=== PATIENT | male | born 1965 | race Caucasian/White ===

== ENCOUNTER 2016-04-17 05:02 | Day surgery (SDC) | payer OTHER ==
[2016-04-14 16:40] LABS: HEMATOCRIT 47.2 % (40.0-51.0); HEMOGLOBIN 16.6 g/dL (13.6-17.8)
[2016-04-14 16:43] LABS: ASCORBIC ACID (UR NOT ORDER) NEG (NEG); BILIRUBIN, URINE NEGATIVE (NEG); KETONE, URINE NEGATIVE (NEG); LEUKOCYTE ESTERASE(NOT OR TRACE (NEG); WBC (NOT ORDERED) (RFLEX) 2 (0-5)
--- NOTE | ~2016-04-17 | OP ---
Record Of Operation [facility] [address] [place]. [address] NAME: MELANIE CHARLES : 69 STATUS : [facility]#: [id number] AGE: 51 ADM/REG DATE : 04/17/16 MR#: [id number] REPORT SERV DATE: 04/18/16 DICTATED BY: JOB WHITLEY DATE: 04/18/16 REPORT STATUS : Draft TRANSCRIBED BY: PRIETO DATE: 04/18/16 DATE OF PROCEDURE: 04/17/2016 SURGEON: Job Whitley MD TITLE OF OPERATION: left extracorporeal shockwave lithotripsy. PREOPERATIVE DIAGNOSIS: Left renal stone. POSTOPERATIVE DIAGNOSIS: Left renal stone. INDICATIONS: Mr. Charles is a 51-year-old male with a 1.2 cm left renal stone. He was counseled regarding his options, including observation, ureteroscopy, ESWL, and PCNL. He has elected for left ESWL. ANESTHESIA: General. COMPLICATIONS: None. IMPLANTS: None. SPECIMENS: None. NARRATIVE: The patient was brought to the operating room, identified by his wristband. Levaquin had been given for preoperative antibiotics. Conscious sedation was performed. The stone was localized using the fluoroscopy machine in the AP and oblique planes. The ESWL acting working unit was then placed beneath the patient. We began to shock the stone under fluoroscopic guidance slowly increasing the rate. A total of 3000 shocks was given to the stone. There was good radiographic response of the stone. Total fluoro time was less than 2 minutes. The patient was awoken from anesthesia and transferred to the recovery room in stable condition. I will see him back in two weeks with a KUB. LAMONT/PRIETO Job Whitley MD / [id number] CC: MD Chip Smith Jr., M.D.
[~2016-04-17 05:02] MED LIST: ILA60 PO; IMITREX PO; PERCOCET 7.5/321 TAB PO
== END 2016-04-17 17:51 | disposition home or self-care (01) ==
LOC: SDC 05:02
PROVIDERS: Urology
PROC: 0TF4XZZ Fragmentation in Left Kidney Pelvis, External Approach (ICD-10-PCS; principal; 2016-04-17 07:00)
DX: N20.0 Calculus of kidney (principal); G43.909 Migraine, unspecified, not intractable, without status migrainosus; N40.0 Benign prostatic hyperplasia without lower urinary tract symptoms; Z88.5 Allergy status to narcotic agent; Z88.8 Allergy status to other drugs, medicaments and biological substances; Z79.891 Long term (current) use of opiate analgesic; Z79.899 Other long term (current) drug therapy; Z90.89 Acquired absence of other organs
CPT/HCPCS: 50590; 74000; 76870; 81001; 85014; 85018; A9270-GY; J2250; J2405; J3010

== ENCOUNTER 2016-04-22 16:09 | Observation (INO) | payer OTHER ==
--- NOTE | ~2016-04-22 | OP ---
Record Of Operation [facility] [address] [place]. [address] NAME: MELANIE CHARLES : 69 STATUS : DIS Mina PAT#: [id number] AGE: 51 ADM/REG DATE : 04/22/16 MR#: [id number] REPORT SERV DATE: 04/25/16 DICTATED BY: JOB WHITLEY DATE: 04/25/16 REPORT STATUS : Draft TRANSCRIBED BY: MODL DATE: 04/25/16 DATE OF PROCEDURE: 04/23/2016 SURGEON: Job Whitley MD. TITLE OF OPERATION: Cystourethroscopy with left retrograde pyelogram, left ureteroscopy with laser lithotripsy, and basket stone extraction, and placement of left ureteral stent. PREOPERATIVE DIAGNOSIS: Left ureteral stone. POSTOPERATIVE DIAGNOSIS: Left ureteral stone. INDICATIONS: Mr. Charles is a 51-year-old male, with a history of a 1 cm left renal stone. He underwent ESWL. He presented with severe testicular and flank pain. 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 He is now here for therapy. ANESTHESIA: General. COMPLICATIONS: None. IMPLANT: A 6 x 24 left ureteral stent. SPECIMEN: Stones for analysis. NARRATIVE: The patient was brought to the operating room, identified by his wristband. General anesthesia was induced and Ancef was given for preoperative antibiotics. He was placed in dorsal lithotomy position, prepped and draped in sterile fashion. A cystoscope was placed into his urethra into his bladder. His bladder was inspected, there was no tumors or abnormalities. The left ureteral orifice was identified and cannulated with a Sensor wire. A 5-Tajik open-ended catheter was placed over the wire into the distal ureter, and retrograde pyelogram was shot, which showed complete obstruction of the proximal ureter, due to ureteral stones. A wire was able to be placed past the stone into the kidney. A medium access sheath was placed over the wire into the mid ureter. Then using a flexible ureteroscope, the ureter was inspected, the Steinstrasse was identified, and using a 200 micron holmium laser fiber, these stones were fragmented into numerous small pieces, which were then grasped and removed with a NGage basket. The ureter was then clear of stones. I then drove the scope back up into the kidney and several reasonable sized pieces of stones were encountered. These stones too were fragmented into very small pieces using a 200 micron holmium laser fiber. All stones greater than a millimeter in size were grasped and removed with a NGage basket. At the end of the case, there was no stones larger than a millimeter that could be grasped with the basket. There were no other abnormalities. The scope was removed. The sensor wire was placed back up to the kidney. A 6 x 24 ureteral stent was placed in standard fashion. No tether was left. I will plan on getting him back to clinic next week for cystoscopy and stent removal in the clinic. Record Of Operation [facility] [address] [facility] [place]. [address] NAME: MELANIE CHARLES : 69 STATUS : DIS Mina PAT#: [id number] AGE: 51 ADM/REG DATE : 04/22/16 MR#: [id number] REPORT SERV DATE: 04/25/16 DICTATED BY: JOB WHITLEY DATE: 04/25/16 REPORT STATUS : Draft TRANSCRIBED BY: PRIETO DATE: 04/25/16 LAMONT/PRIETO Job Whitley MD / [id number] CC: MD Chip Smith Jr., M.D.
[2016-04-22 14:57] LABS: WBC (NOT ORDERED) (RFLEX) 0 (0-5)
[2016-04-22 15:01] LABS: BASOPHILS 0.1 %; BASOPHILS ABSOLUTE 0.01 10/3/uL (0.0-0.16); EOSINOPHILS 0.3 %; EOSINOPHILS ABSOLUTE 0.03 10/3/uL (0.0-0.53); ER CBC TAT 0 Hrs 07 Mins; HEMATOCRIT 45.5 % (40.0-51.0); HEMOGLOBIN 16.4 g/dL (13.6-17.8); IMMATURE GRANULOCYTES 0.2 %; IMMATURE GRANULOCYTES ABSOLUTE 0.02 10/3/uL (0.0-0.11); LYMPHOCYTES 9.5 %; LYMPHOCYTES ABSOLUTE 0.89 10/3/uL (0.67-4.30); MEAN CORPUSCULAR HEMOGLOB 30.8 pg (26.0-34.0); MEAN CORPUSCULAR VOLUME 85.4 fL (80-100); MEAN PLATELET VOLUME 9.2 fL (9.2-13.0); MONOCYTES 7.1 %; MONOCYTES ABSOLUTE 0.66 10/3/uL (0.21-1.20); NEUTROPHILS 82.8 %; NEUTROPHILS ABSOLUTE 7.72 10/3/uL (2.02-8.40); PLATELET COUNT 206 10/3/uL (150-400); RBC DISTRIBUTION WIDTH 12.7 % (12.0-16.0); RED CELL COUNT 5.33 10/6/uL (4.7-6.1); WHITE BLOOD CELLS 9.3 10/3/uL (4.5-10.5)
[2016-04-22 15:02] LABS: MANUAL DIFF NO %
[2016-04-22 15:08] LABS: ASCORBIC ACID (UR NOT ORDER) NEG (NEG); BILIRUBIN, URINE NEGATIVE (NEG); ER URINALYSIS TAT 0 Hrs 14 Mins; KETONE, URINE TRACE MG/DL (NEG); LEUKOCYTE ESTERASE(NOT OR NEG (NEG); NITRITE (URINE) NEG (NEG)
[2016-04-22 15:15] LABS: A/G RATIO 1.2 (0.7-1.9); ALBUMIN 4.1 G/DL (3.5-5.0); ALKALINE PHOSPHATASE 113 U/L (45-117); BUN (BLOOD UREA NITROGEN) 21 MG/DL (6-23); CALCIUM, SERUM 8.9 MG/DL (8.5-10.4); CHLORIDE, SERUM 101 MMOL/L (96-112); CO2 (CARBON DIOXIDE) 32 MMOL/L (24-34); CREATININE 1.33 MG/DL (0.70-1.30); GFR AFRICAN AMERICAN 72 ML/MIN (>=60); GFR NON AFRICAN AMERICAN 62 ML/MIN (>=60); GLOBULIN 3.5 G/DL (2.5-4.1); GLUCOSE, SERUM 111 MG/DL (60-99); SGOT(AST) 22 U/L (5-40); SGPT(ALT) 43 U/L (5-65); SODIUM, SERUM 141 MMOL/L (135-148); TOTAL BILIRUBIN 0.8 MG/DL (0-1.2); TOTAL PROTEIN 7.6 G/DL (6.0-8.5)
[2016-04-22] MEDS ORDERED: ILA60 PO (16:35)
[2016-04-22] MEDS ORDERED: IMITREX100 MG PO (16:37)
[2016-04-22] MEDS ORDERED: VITAMIN D PO (16:41)
[2016-04-22] MEDS ORDERED: ZOFRAN ODT4 MG PO (16:43)
[2016-04-22] MEDS ORDERED: PERCOCET 7.5/321 TAB PO (16:44)
[2016-04-23 05:16] LABS: BASOPHILS 0.1 %; BASOPHILS ABSOLUTE 0.01 10/3/uL (0.0-0.16); EOSINOPHILS 0.5 %; EOSINOPHILS ABSOLUTE 0.05 10/3/uL (0.0-0.53); HEMATOCRIT 43.5 % (40.0-51.0); HEMOGLOBIN 15.2 g/dL (13.6-17.8); IMMATURE GRANULOCYTES 0.2 %; IMMATURE GRANULOCYTES ABSOLUTE 0.02 10/3/uL (0.0-0.11); LYMPHOCYTES 9.6 %; LYMPHOCYTES ABSOLUTE 0.93 10/3/uL (0.67-4.30); MEAN CORPUS HGB CONC 34.9 g/dL (32.0-36.0); MEAN CORPUSCULAR HEMOGLOB 30.3 pg (26.0-34.0); MEAN CORPUSCULAR VOLUME 86.7 fL (80-100); MEAN PLATELET VOLUME 9.6 fL (9.2-13.0); MONOCYTES 9.5 %; MONOCYTES ABSOLUTE 0.92 10/3/uL (0.21-1.20); NEUTROPHILS 80.1 %; NEUTROPHILS ABSOLUTE 7.77 10/3/uL (2.02-8.40); PLATELET COUNT 191 10/3/uL (150-400); RBC DISTRIBUTION WIDTH 12.6 % (12.0-16.0); RED CELL COUNT 5.02 10/6/uL (4.7-6.1); WHITE BLOOD CELLS 9.7 10/3/uL (4.5-10.5)
[2016-04-23 05:18] LABS: BUN (BLOOD UREA NITROGEN) 20 MG/DL (6-23); CALCIUM, SERUM 8.4 MG/DL (8.5-10.4); CHLORIDE, SERUM 101 MMOL/L (96-112); CO2 (CARBON DIOXIDE) 31 MMOL/L (24-34); CREATININE 1.55 MG/DL (0.70-1.30); GFR AFRICAN AMERICAN 60 ML/MIN (>=60); GFR NON AFRICAN AMERICAN 52 ML/MIN (>=60); GLUCOSE, SERUM 129 MG/DL (60-99); MANUAL DIFF NO %; SODIUM, SERUM 140 MMOL/L (135-148)
[2016-04-29 13:00] LABS: SOURCE OF STONE Left Kidney (()); STONE COMPOSITION TWO DNR (())
== END 2016-04-23 13:43 | disposition home or self-care (01) ==
LOC: ER 16:09 → CDU1 17:53
PROVIDERS: Emergency Medicine; Urology
PROC: 0T778DZ Dilation of Left Ureter with Intraluminal Device, Via Natural or Artificial Opening Endoscopic (ICD-10-PCS; 2016-04-23)
PROC: BT1FYZZ Fluoroscopy of Left Kidney, Ureter and Bladder using Other Contrast (ICD-10-PCS; 2016-04-23)
PROC: 0TC78ZZ Extirpation of Matter from Left Ureter, Via Natural or Artificial Opening Endoscopic (ICD-10-PCS; principal; 2016-04-23 07:45)
DX: N20.1 Calculus of ureter (principal); G43.909 Migraine, unspecified, not intractable, without status migrainosus; N40.0 Benign prostatic hyperplasia without lower urinary tract symptoms; Z88.5 Allergy status to narcotic agent; Z79.899 Other long term (current) drug therapy; Z79.891 Long term (current) use of opiate analgesic; Z98.890 Other specified postprocedural states
CPT/HCPCS: 74000; 74420; 80048; 80053; 81001; 82365; 83690; 85025; 96374; 96375; 96376; 99285; A9270-GY; C1758; C1894; C2617; G0378; J0330; J0690; J1170; J2175; J2250; J2405; J3010; Q9967